=== PATIENT | male | born 1970 | race Caucasian/White ===

== ENCOUNTER → 2019-07-16 | Outpatient (CLI) | payer BC | LOC: COL.RAD 07-14 13:30 | DX: R59.1 Generalized enlarged lymph nodes (principal) ==

== ENCOUNTER 2020-10-06 11:54 | Day surgery (SDC) | payer BC ==
[2020-10-06] VITALS (9 sets, daily range): BP systolic 103–114; BP diastolic 60–77; PULSE 71–85; TEMP 97.9
[~2020-10-06] VITALS: Ht 175.3 cm; Wt 134.9 kg
[2020-10-06 12:31] LABS: HEMATOCRIT 47.4 % (42.0-52.0); HEMOGLOBIN 16.8 g/dl (13.5-18.0); MEAN CELL VOLUME 94 fl (80.0-100.0); MEAN CORPUSCULAR HEMOGLOBIN 33 pg (27.0-31.0); MEAN CORPUSCULAR HGB CONC 35 g/dl (33.0-37.0); MEAN PLATELET VOLUME 10.1 fl (7.4-10.4); PLATELET COUNT 204 K/mm3 (130-400); RED BLOOD COUNT 5.07 M/mm3 (4.20-5.60); REDCELL DISTRIBUTION WIDTH-CV 12.5 % (11.5-14.5)
[2020-10-06 12:38] LABS: INR 1.1 (0.8-3.0); PROTHROMBIN TIME 12.4 SECONDS (9.7-12.8)
[2020-10-06 12:40] LABS: CALCIUM 9.3 mg/dL (8.4-10.2); CREATININE, serum 0.95 (0.66-1.25); POTASSIUM 3.6 mmol/L (3.4-5.0)
[2020-10-06 12:41] LABS: PARTIAL THROMBOPLASTIN TIME 31.4 SECONDS (26.0-37.0)
[2020-10-06] MEDS ORDERED: PROAIR HFA0.09 MG/AC IH (13:23)
[2020-10-06] MEDS ORDERED: PRINZIDE 12.5 M1 TAB PO (13:23)
[2020-10-06] MEDS ORDERED: ASPI325T6 PO (13:24)
[2020-10-06] MEDS ORDERED: PRILOSEC 20MG20 MG PO (13:24)
[2020-10-06] MEDS ORDERED: PRAVACHOL10 MG PO (13:25)
[2020-10-06] MEDS ORDERED: OZEMPIC0.25 MG/0. SQ (13:25)
--- NOTE | 2020-10-06 17:22 | NUR ---
Air has been removed from TR band in 2 ml increments without issue. Rt radial puncture site dressed with 2x2 and bandaid. IV DC'd with catheter intact. DC instructions reviewed and pt & express understanding. Pt taken to 's car by wheelchair with personal belongings.
== END 2020-10-06 17:35 | disposition home or self-care (01) ==
LOC: COL.CAR
PROVIDERS: Internal Medicine Interventional Cardiology
DX: I25.10 Atherosclerotic heart disease of native coronary artery without angina pectoris (principal); I10 Essential (primary) hypertension; E11.9 Type 2 diabetes mellitus without complications; E78.5 Hyperlipidemia, unspecified; Z20.822 Contact with and (suspected) exposure to COVID-19; Z79.82 Long term (current) use of aspirin; Z79.899 Other long term (current) drug therapy; Z80.9 Family history of malignant neoplasm, unspecified
CPT/HCPCS: C1769; J1644; J2250; J3010; Q9967

== ENCOUNTER 2022-03-02 11:02 | Emergency (ER) | payer BC ==
[~2022-03-02] VITALS: Ht 175.3 cm; Wt 127.3 kg
[~2022-03-02 11:02] MED LIST: ASPI325T6 PO; OZEMPIC0.25 MG/0. SQ; PRAVACHOL10 MG PO; PRILOSEC 20MG20 MG PO; PRINZIDE 12.5 M1 TAB PO; PROAIR HFA0.09 MG/AC IH
[2022-03-02 11:07] VITALS: TEMP 98.3
[2022-03-02 11:32] LABS: BASO % 0.5 % (0.0-2.0); EOS # 0.2 K/mm3 (0.0-0.7); EOS % 2.9 % (0.0-4.0); GRAN # 4.4 K/mm3 (1.4-6.5); GRAN % 57.9 % (42.2-75.2); HEMATOCRIT 48.9 % (42.0-52.0); HEMOGLOBIN 17.1 g/dl (13.5-18.0); LYMPH # 2.1 K/mm3 (1.2-3.4); LYMPH % 28.5 % (20.0-51.0); MEAN CELL VOLUME 95 fl (80.0-100.0); MEAN CORPUSCULAR HEMOGLOBIN 33 pg (27-31); MEAN CORPUSCULAR HGB CONC 35 g/dl (33.0-37.0); MEAN PLATELET VOLUME 9.8 fl (7.4-10.4); MONO # 0.7 K/mm3 (0.1-0.6); MONO % 9.9 % (1.7-9.3); PLATELET COUNT 184 K/mm3 (130-400); RED BLOOD COUNT 5.17 M/mm3 (4.20-5.60); REDCELL DISTRIBUTION WIDTH-CV 12.4 % (11.5-14.5)
[2022-03-02 11:49] LABS: ALANINE AMINOTRANSFERASE 36 U/L (0-55); ALBUMIN 4.4 gm/dL (3.5-5.0); ALKALINE PHOSPHATASE 62 U/L (40-150); ANION GAP 11 mmol/L (7-16); AST,SGOT 24 U/L (5-34); BILIRUBIN,TOTAL 0.8 mg/dL (0.2-1.2); BLOOD UREA NITROGEN 19 mg/dL (8-26); CALCIUM 9.5 mg/dL (8.4-10.2); CARBON DIOXIDE 25 mmol/L (22-29); CHLORIDE 103 mmol/L (98-107); CREATININE, serum 1.01 mg/dL (0.72-1.25); GLUCOSE 106 mg/dL (70-99); POTASSIUM 3.9 mmol/L (3.5-4.5); SODIUM 139 mmol/L (136-145); TOTAL PROTEIN 7.8 gm/dL (6.2-8.1)
[2022-03-02 11:57] LABS: PROTHROMBIN TIME 11.8 SECONDS (9.7-12.8)
[2022-03-02 11:59] LABS: TROPONIN-I < 0.010 ng/mL (0.00-0.033)
[2022-03-02 11:59] LABS: PARTIAL THROMBOPLASTIN TIME 32.4 SECONDS (26.0-37.0)
[2022-03-02 15:03] VITALS: BP 130/88; PULSE 77
== END 2022-03-02 15:03 | disposition home or self-care (01) ==
LOC: COL.ER 11:02
PROVIDERS: Emergency Medicine
DX: R07.89 Other chest pain (principal); Z98.61 Coronary angioplasty status

== ENCOUNTER → 2022-12-26 | Outpatient (REF) | payer BC | LOC: ZCOL.LAB 13:53 | DX: R07.89 Other chest pain (principal) ==

== ENCOUNTER → 2023-10-01 | Outpatient (CLI) | payer BC ==
[~2023-10-01] MED LIST changes: +Albuterol 0.083% Neb Soln 2.5 MG/3 ML UD IH ONE
== END ==
LOC: COL.CARD 07:14
DX: R05.8 Other specified cough (principal); R06.2 Wheezing; R06.02 Shortness of breath

== ENCOUNTER → 2023-11-05 | Outpatient (CLI) | payer BC ==
[~2023-11-05] MED LIST changes: +Methacholine Vial A (Clear Label Base-Cntrl) IH ONE; +Methacholine Vial B (Red Label) 0.0625 MG/ML 3 ML VIAL.NEB IH ONE; +Methacholine Vial C (Orange Label) 0.25 MG/ML 3 ML VIAL.NEB IH ONE; +Methacholine Vial D (Yellow Label) 1 MG/ML 3 ML VIAL.NEB IH ONE; +Methacholine Vial E (Green Label) 4 MG/ML 3 ML VIAL.NEB IH ONE
== END ==
LOC: COL.CARD 07:20
DX: R06.2 Wheezing (principal); R06.02 Shortness of breath
CPT/HCPCS: J7674